=== PATIENT | male | born 1965 | race African-American/Black ===

== ENCOUNTER 2021-09-16 06:55 | Inpatient (IN) | payer BC ==
[~2021-09-16] VITALS: Ht 182.9 cm; Wt 100.7 kg
[2021-09-16] MEDS ORDERED: ONDANSETRON HCL 4MG/2ML INJ IV STA (08:11)
[2021-09-16] MEDS ORDERED: MAGNESIUM/ALUMINUM HYDROXIDE/SIMETHICONE 30ML UDC PO STA (08:11)
[2021-09-16] MEDS ORDERED: SODIUM CHLORIDE 0.9% 1,000 ML IV ONE (08:15)
[2021-09-16] MEDS ORDERED: DIPHENHYDRAMINE 50MG/ML VIAL IV ONE (08:30)
[2021-09-16 10:20] LABS: MEAN CORPUSCULAR HEMOGLOBIN 29.1 pg (28.0-32.0); MEAN CORPUSCULAR VOLUME 91.4 fL (80.0-94.0); MEAN PLATELET VOLUME 9.8 fl (7.4-10.4); PLATELET 211 x1000/uL (130-400); RED BLOOD CELL COUNT 2.21 mill/uL (4.7-6.1); RED CELL DISTRIBUTION WIDTH 13.3 % (11.6-14.6)
[2021-09-16 10:27] LABS: CHLORIDE 114 mEq/L (98-107)
[2021-09-16 10:31] LABS: ETHANOL BLOOD < 10 mg/dL
[2021-09-16 10:37] LABS: HEMATOCRIT. 20.2 % (42.0-52.0); HEMOGLOBIN. 6.4 g/dL (14.0-18.0)
[2021-09-16] MEDS ORDERED: CALCIUM GLUCONATE 1GM PREMIX 50 ML IV SCH (11:00)
[2021-09-16 11:07] LABS: PLATELET ESTIMATE NORMAL
[2021-09-16 13:20] LABS: TOTAL IRON BINDING CAPACITY 107 ug/dL (250-450)
[2021-09-16] MEDS ORDERED: CEFTRIAXONE 1 G PREMIX 50 ML IV SCH (13:45)
[2021-09-16] MEDS ORDERED: DOCUSATE SODIUM 100MG CAPSULE PO PRN (13:45)
[2021-09-16] MEDS ORDERED: MAGNESIUM/ALUMINUM HYDROXIDE/SIMETHICONE 30ML UDC PO PRN (13:45)
[2021-09-16] MEDS ORDERED: GUAIFENESIN 200MG/10ML SUGAR FREE UDC PO PRN (13:45)
[2021-09-16] MEDS ORDERED: IPRATROPIUM/ALBUTEROL 0.5-3(2.5)MG/3ML NEB NEB PRN (13:45)
[2021-09-16] MEDS ORDERED: NA PHOS,M-B/NA PHOS,DI-BA ENEMA 118ML PR PRN (13:45)
[2021-09-16] MEDS ORDERED: CALCIUM GLUCONATE 1GM PREMIX 50 ML IV NR (13:45)
[2021-09-16] MEDS ORDERED: LORAZEPAM 0.5MG TABLET PO PRN (13:45)
[2021-09-16] MEDS ORDERED: ACETAMINOPHEN 325MG TABLET PO PRN (13:45)
[2021-09-16] MEDS ORDERED: MANNITOL 12.5G (25%) VIAL 50ML IV NR (13:45)
[2021-09-16] MEDS ORDERED: HYDROCODONE/ACETAMINOPHEN 5/325MG TABLET PO PRN (13:45)
[2021-09-16] MEDS ORDERED: ONDANSETRON HCL 4MG/2ML INJ IV PRN (13:45)
[2021-09-16] MEDS ORDERED: ACETAMINOPHEN 650MG SUPP PR PRN (13:45)
[2021-09-16 14:34] LABS: PARTIAL THROMBOPLASTIN TIME 30.2 sec (23.4-31.0)
[2021-09-16] MEDS ORDERED: CEFTRIAXONE SODIUM 1 G/VIAL ONE (15:18)
[2021-09-16 15:25] LABS: BG BASE EXCESS -13.5 mmol/L (-2.0-2.0); BG CARBOXYHEMOGLOBIN 0.3 % (0.5-1.5); BG DEOXYHEMOGLOBIN 4.1 % (0.0-5.0); BG HCO3 ACT 11.9 mmol/L (22.0-26.0); BG METHEMOGLOBIN 0.3 % (0.0-1.5); BG OXYGEN SATURATION 95.9 % (92.0-98.5); BG OXYHEMOGLOBIN 95.3 % (94.0-97.0); BG PCO2 25.7 mmHg (35.0-45.0); BG PH 7.283 (7.350-7.450); BG PO2 99.2 mmHg (75.0-100.0); BG SAMPLE SITE RIGHT BRACHIAL; BG TOTAL HEMOGLOBIN 7.4 g/dL (12.0-18.0); BG VENT MODE ROOM AIR
[2021-09-16] MEDS: PANTOPRAZOLE SODIUM 40 MG/VIAL IV SCH ×2 (16:14→17:00)
[2021-09-16] MEDS: CEFTRIAXONE 1,000 MG in DEXTROSE 5% WATER 50 ML IV SCH (16:14)
[2021-09-16 16:25] LABS: CREATINE KINASE MB FRACTION 5.9 ng/mL (0.5-3.6); INR 1.1; PROTHROMBIN TIME 11.8 sec (9.6-11.0)
[2021-09-16] MEDS ORDERED: SODIUM BICARBONATE 8.4% 1 MEQ/ML 50ML SYR IV NR (16:30)
[2021-09-16 16:35] LABS: PARTIAL THROMBOPLASTIN TIME 83.4 sec (23.4-31.0)
[2021-09-16 16:39] LABS: HEPATITIS B SURFACE ANTIGEN NEGATIVE
[2021-09-16 18:00] VITALS: BP_SYST 172; BP_SYST 191; BP_DIAS 112; BP_DIAS 91
[2021-09-16] MEDS: CLONIDINE 0.1MG TABLET PO PRN (19:38)
[2021-09-16 20:00] VITALS: BP_SYST 178; BP_SYST 184; BP_DIAS 101; BP_DIAS 105
[2021-09-16 20:18] LABS: HEMATOCRIT 28.2 % (42.0-52.0); HEMOGLOBIN 8.4 g/dL (14.0-18.0)
[2021-09-16 20:49] LABS: PROTHROMBIN TIME 11.2 sec (9.6-11.0)
[2021-09-16] MEDS ORDERED: PNEUMOCOCCAL 23-VAL P-SAC VAC 0.5 ML IM ONE (21:00)
[2021-09-16 22:00] VITALS: BP 175/102
[2021-09-17] VITALS (18 sets, daily range): BP systolic 148–174; BP diastolic 70–104
[2021-09-17 00:57] LABS: HEMATOCRIT. 23.6 % (42.0-52.0); HEMOGLOBIN. 7.4 g/dL (14.0-18.0); MEAN CORPUSCULAR HEMOGLOBIN 28.4 pg (28.0-32.0); MEAN CORPUSCULAR VOLUME 90.8 fL (80.0-94.0); PLATELET 211 x1000/uL (130-400); RED CELL DISTRIBUTION WIDTH 13.8 % (11.6-14.6)
[2021-09-17 01:16] LABS: CREATINE KINASE MB FRACTION 5.7 ng/mL (0.5-3.6)
[2021-09-17 03:33] LABS: PLATELET ESTIMATE NORMAL
[2021-09-17] MEDS: CLONIDINE 0.1MG TABLET PO PRN (06:25)
[2021-09-17 06:41] LABS: BASOPHILS % 0.5 % (0.0-2.0); EOSINOPHILS % 7.7 % (0.0-5.0); HEMATOCRIT. 25.6 % (42.0-52.0); HEMOGLOBIN. 8.4 g/dL (14.0-18.0); LYMPHOCYTES % 7.9 % (20.0-50.0); MEAN CORPUSCULAR HEMOGLOBIN 29.3 pg (28.0-32.0); MEAN CORPUSCULAR VOLUME 89.5 fL (80.0-94.0); MEAN PLATELET VOLUME 9.6 fl (7.4-10.4); MONOCYTES % 5.4 % (2.0-8.0); NEUTROPHILS % 78.5 % (40.0-76.0); PLATELET 205 x1000/uL (130-400); RED BLOOD CELL COUNT 2.86 mill/uL (4.7-6.1); RED CELL DISTRIBUTION WIDTH 13.6 % (11.6-14.6)
[2021-09-17 06:44] LABS: CHLORIDE 111 mEq/L (98-107)
[2021-09-17 06:54] LABS: HDL CHOLESTEROL 78 mg/dL (40-59); LDL CHOLESTEROL 81 mg/dL (5-100); T4 FREE 0.65 ng/dL (0.76-1.46)
[2021-09-17 07:00] LABS: FOLIC ACID (FOLATE) SERUM 5.1 ng/mL (>5.38)
[2021-09-17 07:11] LABS: PROTHROMBIN TIME 10.7 sec (9.6-11.0)
[2021-09-17] MEDS: PANTOPRAZOLE SODIUM 40 MG/VIAL IV SCH ×2 (09:00→16:15)
[2021-09-17] MEDS: MULTIVITAMINS,THER W-MINERALS TABLET PO SCH (10:56)
[2021-09-17] MEDS: FOLIC ACID/VITAMIN B COMP W-C TABLET PO SCH (10:56)
[2021-09-17] MEDS: THIAMINE HCL 100MG TABLET PO SCH (10:57)
[2021-09-17] MEDS: AMLODIPINE 10MG TABLET PO SCH (11:37)
[2021-09-17] MEDS: FUROSEMIDE 40MG/4ML VIAL IVP SCH (12:05)
[2021-09-17 12:24] LABS: CREATINE KINASE 1478 IU/L (39-308)
[2021-09-17 12:39] LABS: HEMATOCRIT. 26.5 % (42.0-52.0); HEMOGLOBIN. 8.7 g/dL (14.0-18.0); MEAN CORPUSCULAR HEMOGLOBIN 29.6 pg (28.0-32.0); MEAN PLATELET VOLUME 9.6 fl (7.4-10.4); PLATELET 198 x1000/uL (130-400); RED BLOOD CELL COUNT 2.95 mill/uL (4.7-6.1); RED CELL DISTRIBUTION WIDTH 13.8 % (11.6-14.6)
[2021-09-17] MEDS: CALCIUM ACETATE 667MG CAPSULE PO SCH ×2 (12:53→18:30)
[2021-09-17] MEDS ORDERED: CALCIUM GLUCONATE 1GM PREMIX 50 ML IV SCH (13:00)
[2021-09-17] MEDS: HYDRALAZINE HCL 25MG TABLET PO SCH ×2 (13:25→21:05)
[2021-09-17] MEDS: CEFTRIAXONE 1,000 MG in DEXTROSE 5% WATER 50 ML IV SCH ×2 (15:08→15:13)
[2021-09-17 18:15] LABS: PLATELET ESTIMATE NORMAL
[2021-09-17] MEDS ORDERED: NALOXONE HCL 0.4MG/ML VIAL IV PRN (20:45)
[2021-09-17 21:09] LABS: BASOPHILS % 0.4 % (0.0-2.0); EOSINOPHILS % 8.4 % (0.0-5.0); HEMATOCRIT. 28.1 % (42.0-52.0); HEMOGLOBIN. 8.8 g/dL (14.0-18.0); LYMPHOCYTES % 7.1 % (20.0-50.0); MEAN CORPUSCULAR HEMOGLOBIN 28.6 pg (28.0-32.0); MEAN CORPUSCULAR VOLUME 91.8 fL (80.0-94.0); MEAN PLATELET VOLUME 9.8 fl (7.4-10.4); MONOCYTES % 6.1 % (2.0-8.0); PLATELET 194 x1000/uL (130-400); RED BLOOD CELL COUNT 3.06 mill/uL (4.7-6.1); RED CELL DISTRIBUTION WIDTH 14.5 % (11.6-14.6)
[2021-09-18] VITALS (12 sets, daily range): BP systolic 134–172; BP diastolic 83–102
[2021-09-18] MEDS: DIPHENHYDRAMINE 50MG/ML VIAL IV PRN (01:17)
[2021-09-18] MEDS: HYDRALAZINE HCL 25MG TABLET PO SCH ×3 (05:09→21:05)
[2021-09-18 07:12] LABS: BASOPHILS % 0.3 % (0.0-2.0); EOSINOPHILS % 9.6 % (0.0-5.0); HEMATOCRIT. 24.5 % (42.0-52.0); LYMPHOCYTES % 8.3 % (20.0-50.0); MEAN CORPUSCULAR HEMOGLOBIN 29.1 pg (28.0-32.0); MEAN CORPUSCULAR VOLUME 89.2 fL (80.0-94.0); MEAN PLATELET VOLUME 10.1 fl (7.4-10.4); MONOCYTES % 6.3 % (2.0-8.0); NEUTROPHILS % 75.5 % (40.0-76.0); PLATELET 191 x1000/uL (130-400); RED BLOOD CELL COUNT 2.75 mill/uL (4.7-6.1)
[2021-09-18] MEDS: FOLIC ACID/VITAMIN B COMP W-C TABLET PO SCH (08:31)
[2021-09-18] MEDS: AMLODIPINE 10MG TABLET PO SCH (08:31)
[2021-09-18] MEDS: THIAMINE HCL 100MG TABLET PO SCH (08:31)
[2021-09-18] MEDS: FUROSEMIDE 40MG/4ML VIAL IVP SCH (08:31)
[2021-09-18] MEDS: PANTOPRAZOLE SODIUM 40 MG/VIAL IV SCH ×2 (08:31→17:33)
[2021-09-18] MEDS: MULTIVITAMINS,THER W-MINERALS TABLET PO SCH (08:31)
[2021-09-18] MEDS: CALCIUM ACETATE 667MG CAPSULE PO SCH ×3 (08:31→17:33)
[2021-09-18 08:40] LABS: *BARBITURATES SCREEN URINE NEGATIVE (NEGATIVE)
[2021-09-18 08:42] LABS: *AMPHETAMINES SCREEN URINE NEGATIVE (NEGATIVE); *BENZODIAZEPINES SCREEN URINE NEGATIVE (NEGATIVE); *COCAINE SCREEN URINE NEGATIVE (NEGATIVE); METHADONE URINE SCREEN NEGATIVE (NEGATIVE); OPIATES URINE SCREEN NEGATIVE (NEGATIVE); PHENCYCLIDINE URINE SCREEN NEGATIVE (NEGATIVE)
[2021-09-18 08:43] LABS: CANNABINOID URINE SCREEN PRESUMTIVE POSITIVE (NEGATIVE)
[2021-09-18] MEDS ORDERED: PNEUMOCOCCAL 23-VAL P-SAC VAC 0.5 ML IM ONE (08:45)
[2021-09-18 09:11] LABS: ANTI-NUCLEAR ANTIBODIES DIRECT Negative (Negative)
[2021-09-18 12:53] LABS: CLARITY URINE CLEAR (CLEAR); COLOR URINE YELLOW (YELLOW); KETONES URINE NEGATIVE (NEGATIVE); LEUKOCYTE ESTERASE URINE 1+ (NEGATIVE); NITRITE URINE NEGATIVE (NEGATIVE); OCCULT BLOOD URINE 1+ (NEGATIVE); PH URINE 5.5 (4.5-8.0); PROTEIN URINE 4+ (NEGATIVE); SPECIFIC GRAVITY URINE 1.019 (1.005-1.030); UROBILINOGEN URINE 0.2 E.U./dL (0.2-1.0)
[2021-09-18] MEDS ORDERED: CALCIUM GLUCONATE 1GM PREMIX 50 ML IV SCH ×2 (13:00→14:00)
[2021-09-18] MEDS: CEFTRIAXONE 1,000 MG in DEXTROSE 5% WATER 50 ML IV SCH (17:32)
[2021-09-19] VITALS (29 sets, daily range): BP systolic 90–170; BP diastolic 37–126
[2021-09-19] MEDS: CLONIDINE 0.1MG TABLET PO PRN ×2 (01:38→10:27)
[2021-09-19 06:28] LABS: BASOPHILS % 0.3 % (0.0-2.0); EOSINOPHILS % 8.3 % (0.0-5.0); HEMATOCRIT. 22.7 % (42.0-52.0); HEMOGLOBIN. 7.4 g/dL (14.0-18.0); LYMPHOCYTES % 7.9 % (20.0-50.0); MEAN CORPUSCULAR HEMOGLOBIN 29.5 pg (28.0-32.0); MEAN CORPUSCULAR VOLUME 90.5 fL (80.0-94.0); MEAN PLATELET VOLUME 9.5 fl (7.4-10.4); MONOCYTES % 6.2 % (2.0-8.0); NEUTROPHILS % 77.3 % (40.0-76.0); PLATELET 155 x1000/uL (130-400); RED BLOOD CELL COUNT 2.51 mill/uL (4.7-6.1); RED CELL DISTRIBUTION WIDTH 13.5 % (11.6-14.6)
[2021-09-19] MEDS: HYDRALAZINE HCL 25MG TABLET PO SCH ×3 (06:45→21:36)
[2021-09-19] MEDS: FOLIC ACID/VITAMIN B COMP W-C TABLET PO SCH (10:25)
[2021-09-19] MEDS: PANTOPRAZOLE SODIUM 40 MG/VIAL IV SCH ×2 (10:25→18:04)
[2021-09-19] MEDS: FUROSEMIDE 40MG/4ML VIAL IVP SCH (10:25)
[2021-09-19] MEDS: THIAMINE HCL 100MG TABLET PO SCH (10:26)
[2021-09-19] MEDS: AMLODIPINE 10MG TABLET PO SCH (10:26)
[2021-09-19] MEDS: CALCIUM ACETATE 667MG CAPSULE PO SCH ×3 (10:26→18:04)
[2021-09-19] MEDS ORDERED: LIDOCAINE HCL 1% 30ML VIAL (10MG/ML) ONE (12:33)
[2021-09-19] MEDS ORDERED: FENTANYL CITRATE/PF 50MCG/ML 2ML VIAL ONE (13:02)
[2021-09-19 13:10] LABS: ATYPICAL P-ANCA <1:20 titer (Neg:<1:20); CYTOPLASMIC C-ANCA <1:20 titer (Neg:<1:20); PERINUCLEAR P-ANCA <1:20 titer (Neg:<1:20)
[2021-09-19] MEDS ORDERED: FENTANYL CITRATE/PF 50MCG/ML 2ML VIAL IV ONE (13:15)
[2021-09-20] VITALS (12 sets, daily range): BP systolic 138–160; BP diastolic 78–97
[2021-09-20] MEDS: HYDRALAZINE HCL 25MG TABLET PO SCH ×3 (05:47→21:54)
[2021-09-20 08:32] LABS: BASOPHILS % 0.4 % (0.0-2.0); EOSINOPHILS % 10.5 % (0.0-5.0); HEMATOCRIT. 24.2 % (42.0-52.0); MEAN CORPUSCULAR HEMOGLOBIN 29.5 pg (28.0-32.0); MEAN CORPUSCULAR VOLUME 88.7 fL (80.0-94.0); MEAN PLATELET VOLUME 9.2 fl (7.4-10.4); MONOCYTES % 6.9 % (2.0-8.0); NEUTROPHILS % 74.2 % (40.0-76.0); PLATELET 139 x1000/uL (130-400); RED BLOOD CELL COUNT 2.73 mill/uL (4.7-6.1); RED CELL DISTRIBUTION WIDTH 13.5 % (11.6-14.6)
[2021-09-20 08:51] LABS: PHOSPHORUS 5.8 mg/dL (2.5-4.9)
[2021-09-20] MEDS: CALCIUM ACETATE 667MG CAPSULE PO SCH ×3 (09:16→18:19)
[2021-09-20] MEDS: THIAMINE HCL 100MG TABLET PO SCH (09:16)
[2021-09-20] MEDS: AMLODIPINE 10MG TABLET PO SCH (09:16)
[2021-09-20] MEDS: FOLIC ACID/VITAMIN B COMP W-C TABLET PO SCH (09:16)
[2021-09-20] MEDS: FUROSEMIDE 40MG/4ML VIAL IVP SCH (09:17)
[2021-09-20] MEDS: PANTOPRAZOLE SODIUM 40 MG/VIAL IV SCH ×2 (09:17→18:19)
[2021-09-20] MEDS: CLONIDINE 0.1MG TABLET PO SCH ×3 (10:57→21:54)
[2021-09-20] MEDS: CEFTRIAXONE 1,000 MG in DEXTROSE 5% WATER 50 ML IV SCH ×2 (18:19→18:21)
[2021-09-21] VITALS (12 sets, daily range): BP systolic 121–157; BP diastolic 57–92
[2021-09-21 05:59] LABS: HEMATOCRIT. 22.5 % (42.0-52.0); HEMOGLOBIN. 7.5 g/dL (14.0-18.0); MEAN CORPUSCULAR HEMOGLOBIN 30.1 pg (28.0-32.0); MEAN PLATELET VOLUME 9.4 fl (7.4-10.4); PLATELET 137 x1000/uL (130-400); RED CELL DISTRIBUTION WIDTH 13.8 % (11.6-14.6)
[2021-09-21] MEDS: CLONIDINE 0.1MG TABLET PO SCH ×3 (06:07→21:06)
[2021-09-21] MEDS: HYDRALAZINE HCL 25MG TABLET PO SCH ×3 (06:07→21:05)
[2021-09-21] MEDS: FOLIC ACID/VITAMIN B COMP W-C TABLET PO SCH (08:23)
[2021-09-21] MEDS: PANTOPRAZOLE SODIUM 40 MG/VIAL IV SCH ×2 (08:25→17:15)
[2021-09-21] MEDS: AMLODIPINE 10MG TABLET PO SCH (08:25)
[2021-09-21] MEDS: THIAMINE HCL 100MG TABLET PO SCH (08:25)
[2021-09-21] MEDS: FUROSEMIDE 40MG/4ML VIAL IVP SCH (08:25)
[2021-09-21] MEDS: CALCIUM ACETATE 667MG CAPSULE PO SCH ×3 (08:32→17:14)
[2021-09-21 12:14] LABS: PLATELET ESTIMATE NORMAL
[2021-09-21 19:06] LABS: ANTI-MYELOPEROXIDASE AB < 9.0 U/mL (0.0-9.0); ANTI-PROTEINASE 3 ABS < 3.5 U/mL (0.0-3.5)
[2021-09-22] VITALS (12 sets, daily range): BP systolic 131–155; BP diastolic 64–90
[2021-09-22] MEDS: HYDRALAZINE HCL 25MG TABLET PO SCH ×3 (05:53→21:56)
[2021-09-22] MEDS: CLONIDINE 0.1MG TABLET PO SCH ×3 (05:53→21:56)
[2021-09-22 06:23] LABS: BASOPHILS % 0.3 % (0.0-2.0); EOSINOPHILS % 9.5 % (0.0-5.0); HEMATOCRIT. 23.6 % (42.0-52.0); HEMOGLOBIN. 7.6 g/dL (14.0-18.0); LYMPHOCYTES % 7.1 % (20.0-50.0); MEAN CORPUSCULAR HEMOGLOBIN 29.2 pg (28.0-32.0); MEAN CORPUSCULAR VOLUME 90.9 fL (80.0-94.0); MEAN PLATELET VOLUME 9.3 fl (7.4-10.4); MONOCYTES % 8.9 % (2.0-8.0); NEUTROPHILS % 74.2 % (40.0-76.0); PLATELET 156 x1000/uL (130-400); RED BLOOD CELL COUNT 2.59 mill/uL (4.7-6.1); RED CELL DISTRIBUTION WIDTH 14.2 % (11.6-14.6)
[2021-09-22] MEDS: CALCIUM ACETATE 667MG CAPSULE PO SCH ×3 (08:54→17:37)
[2021-09-22] MEDS: FUROSEMIDE 40MG/4ML VIAL IVP SCH (08:54)
[2021-09-22] MEDS: THIAMINE HCL 100MG TABLET PO SCH (08:54)
[2021-09-22] MEDS: FOLIC ACID/VITAMIN B COMP W-C TABLET PO SCH (08:54)
[2021-09-22] MEDS: AMLODIPINE 10MG TABLET PO SCH (08:58)
[2021-09-22] MEDS: PANTOPRAZOLE SODIUM 40 MG/VIAL IV SCH ×2 (09:08→17:37)
[2021-09-22] MEDS ORDERED: CALCIUM GLUCONATE 1GM PREMIX 50 ML IV ONE (09:30)
[2021-09-22] MEDS ORDERED: CALCIUM GLUCONATE 1GM PREMIX 50 ML IV SCH (11:00)
[2021-09-22 13:00] LABS: HEMOGLOBIN. 7.6 g/dL (14.0-18.0); MEAN CORPUSCULAR HEMOGLOBIN 29.1 pg (28.0-32.0); MEAN CORPUSCULAR VOLUME 91.2 fL (80.0-94.0); PLATELET 163 x1000/uL (130-400); RED BLOOD CELL COUNT 2.63 mill/uL (4.7-6.1)
[2021-09-22 14:01] LABS: PLATELET ESTIMATE NORMAL
[2021-09-22 16:23] LABS: HEMOGLOBIN 9.1 g/dL (14.0-18.0)
[2021-09-23] VITALS (11 sets, daily range): BP systolic 129–152; BP diastolic 61–94
[2021-09-23] MEDS: DIPHENHYDRAMINE 50MG/ML VIAL IV PRN ×2 (04:57→08:34)
[2021-09-23] MEDS: CLONIDINE 0.1MG TABLET PO SCH ×2 (05:30→13:25)
[2021-09-23] MEDS: HYDRALAZINE HCL 25MG TABLET PO SCH ×2 (05:30→13:25)
[2021-09-23 06:34] LABS: BASOPHILS % 0.3 % (0.0-2.0); EOSINOPHILS % 10.8 % (0.0-5.0); HEMATOCRIT. 21.8 % (42.0-52.0); HEMOGLOBIN. 7.2 g/dL (14.0-18.0); LYMPHOCYTES % 7.9 % (20.0-50.0); MEAN CORPUSCULAR VOLUME 90.8 fL (80.0-94.0); MEAN PLATELET VOLUME 9.3 fl (7.4-10.4); MONOCYTES % 9.1 % (2.0-8.0); NEUTROPHILS % 71.9 % (40.0-76.0); PLATELET 151 x1000/uL (130-400); RED CELL DISTRIBUTION WIDTH 13.9 % (11.6-14.6)
[2021-09-23] MEDS: PANTOPRAZOLE SODIUM 40 MG/VIAL IV SCH ×2 (08:34→17:56)
[2021-09-23] MEDS: THIAMINE HCL 100MG TABLET PO SCH (08:34)
[2021-09-23] MEDS: CALCIUM ACETATE 667MG CAPSULE PO SCH ×3 (08:34→18:33)
[2021-09-23] MEDS: FOLIC ACID/VITAMIN B COMP W-C TABLET PO SCH (08:34)
[2021-09-23] MEDS: AMLODIPINE 10MG TABLET PO SCH (08:35)
[2021-09-23] MEDS ORDERED: CALCIUM GLUCONATE 1,000 MG in DEXT 5% WATER 90 ML IV ONE (09:30)
[2021-09-23] MEDS ORDERED: MAGNESIUM 2 G PREMIX 50 ML IV SCH (10:00)
[2021-09-23] MEDS ORDERED: METOPROLOL TARTRATE 25MG TABLET PO SCH (10:30)
[2021-09-23] MEDS ORDERED: CALCIUM GLUCONATE 1GM PREMIX 50 ML IV NR (11:00)
[2021-09-23] MEDS ORDERED: MAGNESIUM 1 G PREMIX 100 ML IV NR (11:00)
[2021-09-23] MEDS ORDERED: CLON0.1T MT (14:30)
[2021-09-23] MEDS ORDERED: METO25TA6 MT (14:30)
[2021-09-23] MEDS ORDERED: PROT40 MT (14:30)
[2021-09-23] MEDS ORDERED: FOLI1TAB63 MT (14:30)
[2021-09-23] MEDS ORDERED: CALC667T2 PO (14:30)
[2021-09-23] MEDS ORDERED: HYDR-4134 MT (14:30)
== END 2021-09-23 19:12 | disposition home or self-care (01) | DRG 673 ==
LOC: ER 06:55 → 5EST 12:43 → SUPCPDRO 13:40 → EDBEDREQSVC 14:53 → ENRESERV 16:51
PROVIDERS: ADMIT Internal Medicine; ATTEND Internal Medicine
PROC: 30233N1 Transfusion of Nonautologous Red Blood Cells into Peripheral Vein, Percutaneous Approach (ICD-10-PCS; principal; 2021-09-16)
PROC: 02HV33Z Insertion of Infusion Device into Superior Vena Cava, Percutaneous Approach (ICD-10-PCS; 2021-09-16)
PROC: B548ZZA Ultrasonography of Superior Vena Cava, Guidance (ICD-10-PCS; 2021-09-16)
PROC: 5A1D70Z Performance of Urinary Filtration, Intermittent, Less than 6 Hours Per Day (ICD-10-PCS; 2021-09-17)
PROC: 5A1D70Z Performance of Urinary Filtration, Intermittent, Less than 6 Hours Per Day (ICD-10-PCS; 2021-09-18)
PROC: 0JH63XZ Insertion of Tunneled Vascular Access Device into Chest Subcutaneous Tissue and Fascia, Percutaneous Approach (ICD-10-PCS; 2021-09-19)
PROC: 02PYX3Z Removal of Infusion Device from Great Vessel, External Approach (ICD-10-PCS; 2021-09-19)
PROC: 02HV33Z Insertion of Infusion Device into Superior Vena Cava, Percutaneous Approach (ICD-10-PCS; 2021-09-19)
PROC: B5181ZA Fluoroscopy of Superior Vena Cava using Low Osmolar Contrast, Guidance (ICD-10-PCS; 2021-09-19)
PROC: 5A1D70Z Performance of Urinary Filtration, Intermittent, Less than 6 Hours Per Day (ICD-10-PCS; 2021-09-20)
PROC: 5A1D70Z Performance of Urinary Filtration, Intermittent, Less than 6 Hours Per Day (ICD-10-PCS; 2021-09-22)
PROC: 5A1D70Z Performance of Urinary Filtration, Intermittent, Less than 6 Hours Per Day (ICD-10-PCS; 2021-09-23)
DX: N17.9 Acute kidney failure, unspecified (principal); I50.43 Acute on chronic combined systolic (congestive) and diastolic (congestive) heart failure; E87.2 Acidosis; E87.0 Hyperosmolality and hypernatremia; M62.82 Rhabdomyolysis; K92.2 Gastrointestinal hemorrhage, unspecified; N39.0 Urinary tract infection, site not specified; R17 Unspecified jaundice; R18.8 Other ascites; I13.2 Hypertensive heart and chronic kidney disease with heart failure and with stage 5 chronic kidney disease, or end stage renal disease; N18.5 Chronic kidney disease, stage 5; E87.5 Hyperkalemia; E83.51 Hypocalcemia; E83.39 Other disorders of phosphorus metabolism; D64.9 Anemia, unspecified; Z20.822 Contact with and (suspected) exposure to COVID-19; N26.1 Atrophy of kidney (terminal); E78.5 Hyperlipidemia, unspecified; I27.20 Pulmonary hypertension, unspecified; L30.9 Dermatitis, unspecified; Z87.891 Personal history of nicotine dependence; F10.11 Alcohol abuse, in remission; R77.8 Other specified abnormalities of plasma proteins
CPT/HCPCS: 36415; 36556; 36558; 36589; 36600; 71045; 74176; 76700; 76937; 77001; 80048; 80053; 80061; 80305; 80320; 81003; 82270; 82330; 82375; 82550; 82553; 82570; 82575; 82607; 82652; 82728; 82746; 82805; 82962; 83520; 83540; 83550; 83735; 83970; 84100; 84153; 84156; 84439; 84443; 84484; 85014; 85018; 85025; 85044; 85384; 86038; 86160; 86256; 86301; 86705; 86706; 86709; 86803; 86850; 86900; 86920; 87340; 87426; 90732; 93005; 93306; 93970; 97162; 99152; 99153; 99291; C1750; C1752; C1769; C9113; J0610; J0696; J1200; J1642; J1940; J2150; J2405; J3010; J3475; J3490; J7030; J7060; L8514; P9016; U0003; U0005; G0103; G0480; G0500

== ENCOUNTER 2021-10-09 09:54 | Emergency (ER) | payer BC ==
[~2021-10-09] VITALS: Ht 172.7 cm; Wt 100.0 kg
[~2021-10-09 09:54] MED LIST: CALC667T2 PO; CLON0.1T MT; FOLI1TAB63 MT; HYDR-4134 MT; METO25TA6 MT; PROT40 MT
[2021-10-09 10:55] LABS: BASOPHILS % 0.5 % (0.0-2.0); EOSINOPHILS % 9.9 % (0.0-5.0); HEMATOCRIT. 21.7 % (42.0-52.0); HEMOGLOBIN. 7.1 g/dL (14.0-18.0); LYMPHOCYTES % 9.7 % (20.0-50.0); MEAN CORPUSCULAR HEMOGLOBIN 29.7 pg (28.0-32.0); MEAN CORPUSCULAR VOLUME 91.3 fL (80.0-94.0); MEAN PLATELET VOLUME 8.4 fl (7.4-10.4); MONOCYTES % 7.1 % (2.0-8.0); NEUTROPHILS % 72.8 % (40.0-76.0); PLATELET 263 x1000/uL (130-400); RED BLOOD CELL COUNT 2.38 mill/uL (4.7-6.1); RED CELL DISTRIBUTION WIDTH 14.6 % (11.6-14.6)
[2021-10-09 11:03] LABS: CHLORIDE 108 mEq/L (98-107)
[2021-10-09 11:56] VITALS: BP 199/104
== END 2021-10-09 11:57 | disposition home or self-care (01) ==
LOC: ER 09:54 → CANBEDREQ 12:13
DX: D64.9 Anemia, unspecified (principal); I12.0 Hypertensive chronic kidney disease with stage 5 chronic kidney disease or end stage renal disease; N18.6 End stage renal disease; Z99.2 Dependence on renal dialysis
CPT/HCPCS: 36415; 80053; 85025; 86850; 86900; 99283

== ENCOUNTER 2021-11-20 07:12 | Emergency (ER) | payer BC ==
[~2021-11-20] VITALS: Ht 172.7 cm; Wt 110.0 kg
[2021-11-20 08:04] VITALS: BP 181/101
[2021-11-20 08:42] LABS: BASOPHILS % 1.4 % (0.0-2.0); EOSINOPHILS % 5.3 % (0.0-5.0); HEMATOCRIT. 22.3 % (42.0-52.0); HEMOGLOBIN. 7.5 g/dL (14.0-18.0); MEAN CORPUSCULAR HEMOGLOBIN 30.6 pg (28.0-32.0); MEAN CORPUSCULAR VOLUME 91.7 fL (80.0-94.0); MEAN PLATELET VOLUME 7.7 fl (7.4-10.4); MONOCYTES % 7.8 % (2.0-8.0); NEUTROPHILS % 66.5 % (40.0-76.0); PLATELET 193 x1000/uL (130-400); RED BLOOD CELL COUNT 2.44 mill/uL (4.7-6.1); RED CELL DISTRIBUTION WIDTH 13.7 % (11.6-14.6)
[2021-11-20 09:29] LABS: CHLORIDE 100 mEq/L (98-107)
== END 2021-11-20 12:59 | disposition home or self-care (01) ==
LOC: ER 07:12
DX: D64.9 Anemia, unspecified (principal); I12.0 Hypertensive chronic kidney disease with stage 5 chronic kidney disease or end stage renal disease; N18.6 End stage renal disease; Z99.2 Dependence on renal dialysis
CPT/HCPCS: 36415; 80053; 85025; 86850; 86900; 99283

== ENCOUNTER 2022-10-15 10:13 | Inpatient (IN) | payer BC ==
[2022-10-15] VITALS (9 sets, daily range): BP systolic 124–147; BP diastolic 80–106
[~2022-10-15] VITALS: Ht 175.3 cm; Wt 84.5 kg
[2022-10-15] MEDS ORDERED: CEFEPIME 1,000 MG in DEXTROSE 5% WATER 50 ML IV NR (12:30)
[2022-10-15 12:53] LABS: BASOPHILS % 1.1 % (0.0-2.0); EOSINOPHILS % 4.8 % (0.0-5.0); HEMATOCRIT. 33.9 % (42.0-52.0); HEMOGLOBIN. 10.8 g/dL (14.0-18.0); LYMPHOCYTES % 19.9 % (20.0-50.0); MEAN CORPUSCULAR VOLUME 94.3 fL (80.0-94.0); MEAN PLATELET VOLUME 7.5 fl (7.4-10.4); MONOCYTES % 9.7 % (2.0-8.0); NEUTROPHILS % 64.5 % (40.0-76.0); PLATELET 220 x1000/uL (130-400); RED CELL DISTRIBUTION WIDTH 17.1 % (11.6-14.6)
[2022-10-15 13:00] LABS: PROTHROMBIN TIME 10.3 sec (9.6-11.0)
[2022-10-15 13:18] LABS: CHLORIDE 103 mEq/L (98-107)
[2022-10-15 13:49] LABS: ETHANOL BLOOD < 10 mg/dL
[2022-10-15] MEDS ORDERED: ASPIRIN 325MG EC TABLET PO ONE (14:15)
[2022-10-15] MEDS ORDERED: GUAIFENESIN 200MG/10ML SUGAR FREE UDC PO PRN (14:30)
[2022-10-15] MEDS ORDERED: CLONIDINE 0.1MG TABLET PO PRN (14:30)
[2022-10-15] MEDS ORDERED: ONDANSETRON HCL 4MG/2ML INJ IV PRN (14:30)
[2022-10-15] MEDS ORDERED: ACETAMINOPHEN 650MG/20.3ML UDC GT PRN (14:30)
[2022-10-15] MEDS ORDERED: DOCUSATE SODIUM 100MG CAPSULE PO PRN (14:30)
[2022-10-15 14:35] LABS: CLARITY URINE CLEAR (CLEAR); COLOR URINE YELLOW (YELLOW); KETONES URINE NEGATIVE (NEGATIVE); LEUKOCYTE ESTERASE URINE NEGATIVE (NEGATIVE); NITRITE URINE NEGATIVE (NEGATIVE); OCCULT BLOOD URINE NEGATIVE (NEGATIVE); PH URINE 8.5 (4.5-8.0); PROTEIN URINE 2+ (NEGATIVE); SPECIFIC GRAVITY URINE 1.011 (1.005-1.030); UROBILINOGEN URINE 0.2 E.U./dL (0.2-1.0)
[2022-10-15] MEDS ORDERED: PIPERACILLIN/TAZ 3.375G PREMIX 50 ML IV NR (15:00)
[2022-10-15 15:07] LABS: *AMPHETAMINES SCREEN URINE NEGATIVE (NEGATIVE); *BARBITURATES SCREEN URINE NEGATIVE (NEGATIVE); *BENZODIAZEPINES SCREEN URINE NEGATIVE (NEGATIVE); *COCAINE SCREEN URINE NEGATIVE (NEGATIVE); CANNABINOID URINE SCREEN NEGATIVE (NEGATIVE); METHADONE URINE SCREEN NEGATIVE (NEGATIVE); OPIATES URINE SCREEN NEGATIVE (NEGATIVE); PHENCYCLIDINE URINE SCREEN NEGATIVE (NEGATIVE)
[2022-10-15] MEDS ORDERED: ENOXAPARIN 30MG/0.3ML SYR SUBCUT SCH (15:15)
[2022-10-15 16:44] LABS: CREATINE KINASE MB FRACTION < 1.0 ng/mL (0.5-3.6); HDL CHOLESTEROL 48 mg/dL (40-59); LDL CHOLESTEROL 103 mg/dL (5-100)
[2022-10-15] MEDS: CALCIUM ACETATE 667MG CAPSULE PO SCH (17:29)
[2022-10-15] MEDS ORDERED: ASPIRIN 325MG EC TABLET PO NR (18:30)
[2022-10-15] MEDS: METOPROLOL TARTRATE 25MG TABLET PO SCH (23:02)
[2022-10-15] MEDS: FAMOTIDINE 20MG TABLET PO SCH (23:03)
[2022-10-15] MEDS: HYDRALAZINE HCL 25MG TABLET PO SCH (23:03)
[2022-10-16] VITALS (20 sets, daily range): BP systolic 93–147; BP diastolic 51–106
[2022-10-16] MEDS ORDERED: PIPERACILLIN/TAZOBACTAM 3.375 G in DEXTROSE 5% WATER 50 ML IV SCH (04:00)
[2022-10-16] MEDS: HYDRALAZINE HCL 25MG TABLET PO SCH ×3 (06:00→21:35)
[2022-10-16 06:14] LABS: HEMATOCRIT. 35.2 % (42.0-52.0); HEMOGLOBIN. 11.3 g/dL (14.0-18.0); MEAN CORPUSCULAR HEMOGLOBIN 29.7 pg (28.0-32.0); MEAN CORPUSCULAR VOLUME 92.8 fL (80.0-94.0); MEAN PLATELET VOLUME 7.8 fl (7.4-10.4); PLATELET 223 x1000/uL (130-400); RED BLOOD CELL COUNT 3.79 mill/uL (4.7-6.1); RED CELL DISTRIBUTION WIDTH 17.8 % (11.6-14.6)
[2022-10-16 07:30] LABS: CHLORIDE 98 mEq/L (98-107)
[2022-10-16 07:48] LABS: T4 FREE 0.78 ng/dL (0.76-1.46)
[2022-10-16] MEDS ORDERED: INSULIN REGULAR (HUMULIN R) 300UNITS/3ML VIAL IV NR (08:51)
[2022-10-16] MEDS ORDERED: SODIUM BICARBONATE 8.4% 1 MEQ/ML 50ML SYR IV NR (08:51)
[2022-10-16] MEDS ORDERED: LISINOPRIL 5MG TABLET PO SCH (09:00)
[2022-10-16] MEDS ORDERED: DEXTROSE 50% WATER 50ML SYRINGE IV NR (09:00)
[2022-10-16] MEDS: METOPROLOL TARTRATE 25MG TABLET PO SCH ×2 (09:00→21:35)
[2022-10-16 09:01] LABS: CREATINE KINASE 89 IU/L (39-308)
[2022-10-16] MEDS: CALCIUM ACETATE 667MG CAPSULE PO SCH ×3 (09:28→18:11)
[2022-10-16 10:36] LABS: PLATELET ESTIMATE NORMAL
[2022-10-16] MEDS ORDERED: CALCIUM CHLORIDE 1,000 MG in DEXT 5% WATER 90 ML IV NR (11:00)
[2022-10-16] MEDS ORDERED: LIDOCAINE HCL 1% 10 MG/ML 10ML VIAL ONE (12:51)
[2022-10-16] MEDS ORDERED: VANCOMYCIN 1.25GM PMX (XELLIA) 250 ML IV NR (17:00)
[2022-10-16] MEDS: PIPERACILLIN/TAZOBACTAM 3.375 G in DEXTROSE 5% WATER 50 ML IV SCH (21:34)
[2022-10-16] MEDS: FAMOTIDINE 20MG TABLET PO SCH (21:35)
[2022-10-17] VITALS: BP 113/81
[2022-10-17 04:00] VITALS: BP 97/60
[2022-10-17] MEDS: HYDRALAZINE HCL 25MG TABLET PO SCH ×3 (06:00→22:00)
[2022-10-17 07:46] VITALS: BP 124/80
[2022-10-17 08:18] LABS: EOSINOPHILS % 3.7 % (0.0-5.0); HEMOGLOBIN. 10.5 g/dL (14.0-18.0); LYMPHOCYTES % 16.8 % (20.0-50.0); MEAN CORPUSCULAR HEMOGLOBIN 30.4 pg (28.0-32.0); MEAN CORPUSCULAR VOLUME 92.6 fL (80.0-94.0); MEAN PLATELET VOLUME 7.9 fl (7.4-10.4); MONOCYTES % 10.4 % (2.0-8.0); NEUTROPHILS % 68.1 % (40.0-76.0); PLATELET 197 x1000/uL (130-400); RED BLOOD CELL COUNT 3.45 mill/uL (4.7-6.1); RED CELL DISTRIBUTION WIDTH 17.6 % (11.6-14.6)
[2022-10-17] MEDS: METOPROLOL TARTRATE 25MG TABLET PO SCH ×3 (09:00→22:04)
[2022-10-17] MEDS: CALCIUM ACETATE 667MG CAPSULE PO SCH ×3 (09:42→17:45)
[2022-10-17] MEDS: PIPERACILLIN/TAZOBACTAM 3.375 G in DEXTROSE 5% WATER 50 ML IV SCH (09:43)
[2022-10-17 11:28] VITALS: BP 113/72
[2022-10-17 16:00] VITALS: BP 115/76
[2022-10-17] MEDS: CEFEPIME 1,000 MG in DEXTROSE 5% WATER 50 ML IV SCH (17:45)
[2022-10-17 17:49] LABS: HEPATITIS B SURFACE ANTIGEN NEGATIVE
[2022-10-17] MEDS ORDERED: VANCOMYCIN 500MG PREMIX 100 ML IV NR (18:00)
[2022-10-17 20:00] VITALS: BP 111/76
[2022-10-17] MEDS: FAMOTIDINE 20MG TABLET PO SCH (22:03)
[2022-10-18] VITALS: BP 118/80
[2022-10-18 04:00] VITALS: BP 102/63
[2022-10-18] MEDS: HYDRALAZINE HCL 25MG TABLET PO SCH ×3 (06:48→23:11)
[2022-10-18 06:57] LABS: BASOPHILS % 1.5 % (0.0-2.0); EOSINOPHILS % 4.8 % (0.0-5.0); HEMATOCRIT. 33.4 % (42.0-52.0); HEMOGLOBIN. 10.5 g/dL (14.0-18.0); MEAN CORPUSCULAR HEMOGLOBIN 29.6 pg (28.0-32.0); MEAN CORPUSCULAR VOLUME 93.8 fL (80.0-94.0); MONOCYTES % 10.4 % (2.0-8.0); NEUTROPHILS % 64.3 % (40.0-76.0); PLATELET 230 x1000/uL (130-400); RED BLOOD CELL COUNT 3.55 mill/uL (4.7-6.1); RED CELL DISTRIBUTION WIDTH 17.9 % (11.6-14.6)
[2022-10-18 07:23] VITALS: BP 119/70
[2022-10-18] MEDS: METOPROLOL TARTRATE 25MG TABLET PO SCH ×2 (07:59→21:59)
[2022-10-18] MEDS ORDERED: SODIUM POLYSTYRENE SULFONATE 15 G/60 ML BOT PO NR (08:00)
[2022-10-18] MEDS: CALCIUM ACETATE 667MG CAPSULE PO SCH ×3 (08:18→17:44)
[2022-10-18 12:01] VITALS: BP 124/90
[2022-10-18 16:00] VITALS: BP 132/79
[2022-10-18] MEDS: CEFEPIME 1,000 MG in DEXTROSE 5% WATER 50 ML IV SCH (17:44)
[2022-10-18 20:00] VITALS: BP 122/93
[2022-10-18] MEDS: FAMOTIDINE 20MG TABLET PO SCH (21:59)
[2022-10-19] VITALS (15 sets, daily range): BP systolic 117–138; BP diastolic 67–83
[2022-10-19] MEDS: HYDRALAZINE HCL 25MG TABLET PO SCH (06:16)
[2022-10-19 07:19] LABS: BASOPHILS % 1.2 % (0.0-2.0); EOSINOPHILS % 5.4 % (0.0-5.0); HEMATOCRIT. 31.4 % (42.0-52.0); HEMOGLOBIN. 10.2 g/dL (14.0-18.0); LYMPHOCYTES % 19.8 % (20.0-50.0); MEAN CORPUSCULAR VOLUME 92.4 fL (80.0-94.0); MEAN PLATELET VOLUME 7.9 fl (7.4-10.4); MONOCYTES % 9.8 % (2.0-8.0); NEUTROPHILS % 63.8 % (40.0-76.0); PLATELET 222 x1000/uL (130-400); RED CELL DISTRIBUTION WIDTH 17.3 % (11.6-14.6)
[2022-10-19] MEDS ORDERED: LIDOCAINE HCL 1% 10 MG/ML 10ML VIAL ONE (07:28)
[2022-10-19] MEDS ORDERED: FENTANYL CITRATE/PF 50MCG/ML 2ML VIAL ONE (07:29)
[2022-10-19] MEDS ORDERED: HEPARIN 1000 UNITS/ML 10ML ONE (07:29)
[2022-10-19] MEDS ORDERED: FENTANYL CITRATE/PF 50MCG/ML 2ML VIAL IV ONE (08:30)
[2022-10-19] MEDS: METOPROLOL TARTRATE 25MG TABLET PO SCH (09:15)
[2022-10-19] MEDS: CALCIUM ACETATE 667MG CAPSULE PO SCH (09:15)
== END 2022-10-19 13:55 | disposition home or self-care (01) | DRG 314 ==
LOC: ER 10:13 → SUPCPDRO 12:20 → 3WST 18:59
PROVIDERS: ADMIT Internal Medicine; ATTEND Internal Medicine
PROC: 5A1D70Z Performance of Urinary Filtration, Intermittent, Less than 6 Hours Per Day (ICD-10-PCS; 2022-10-15)
PROC: 0JPT3XZ Removal of Tunneled Vascular Access Device from Trunk Subcutaneous Tissue and Fascia, Percutaneous Approach (ICD-10-PCS; principal; 2022-10-16)
PROC: 5A1D70Z Performance of Urinary Filtration, Intermittent, Less than 6 Hours Per Day (ICD-10-PCS; 2022-10-16)
PROC: 0JH63XZ Insertion of Tunneled Vascular Access Device into Chest Subcutaneous Tissue and Fascia, Percutaneous Approach (ICD-10-PCS; 2022-10-19)
PROC: 02H633Z Insertion of Infusion Device into Right Atrium, Percutaneous Approach (ICD-10-PCS; 2022-10-19)
PROC: B5181ZA Fluoroscopy of Superior Vena Cava using Low Osmolar Contrast, Guidance (ICD-10-PCS; 2022-10-19)
PROC: B548ZZA Ultrasonography of Superior Vena Cava, Guidance (ICD-10-PCS; 2022-10-19)
PROC: 5A1D70Z Performance of Urinary Filtration, Intermittent, Less than 6 Hours Per Day (ICD-10-PCS; 2022-10-19)
DX: T80.211A Bloodstream infection due to central venous catheter, initial encounter (principal); A41.9 Sepsis, unspecified organism; N18.6 End stage renal disease; I12.0 Hypertensive chronic kidney disease with stage 5 chronic kidney disease or end stage renal disease; D64.9 Anemia, unspecified; Z20.822 Contact with and (suspected) exposure to COVID-19; Y84.1 Kidney dialysis as the cause of abnormal reaction of the patient, or of later complication, without mention of misadventure at the time of the procedure; E87.5 Hyperkalemia; Z82.49 Family history of ischemic heart disease and other diseases of the circulatory system; Z99.2 Dependence on renal dialysis; Z79.899 Other long term (current) drug therapy; Y92.89 Other specified places as the place of occurrence of the external cause
CPT/HCPCS: 36415; 36558; 36589; 71045; 76937; 77001; 80048; 80053; 80061; 80305; 80320; 81003; 82550; 82553; 83605; 83880; 84145; 84439; 84443; 84484; 85025; 86705; 86709; 86803; 87070; 87340; 87426; 90935; 93306; 99152; 99153; 99291; C1750; J0692; J1644; J1650; J1815; J2543; J3010; J3370; J3490; J7060; G0480; G0500